=== PATIENT | female | born 1980 | race Caucasian/White ===

== ENCOUNTER → 2016-10-08 | Outpatient (CLI) | payer BC, OTHER ==
--- NOTE | 2016-10-08 16:28 | KCIC ---
PROCEDURE Obstetric ultrasound, greater than 14 weeks. HISTORY Supervision of normal . TECHNIQUE Real-time ultrasound imaging of the gravid uterus using transabdominal window is performed. COMPARISON None. FINDINGS A single intrauterine fetus is seen in cephalic position. heart rate is 143 all beats per minute. BPD is 5 cm which equals 21 weeks 1 days. HC is 18.5 cm which equals 20 weeks 6 days. AC is 14.9 cm which equals 20 weeks 1 days. FL is 3.3 cm which equals 20 weeks 3 days. Average gestational age by ultrasound is 20 weeks 5 days with an EDC of . Estimated weight is 350 +/- 52 grams A four-chamber heart and three-vessel cord are identified. stomach and urinary bladder are identified. kidneys are unremarkable. Cord insertion site is unremarkable. Visualized spine is unremarkable. The spine is not imaged in its entirety. Intracranial structures not imaged. AMADO using the four quadrant method is 9.1 cm. Cervix is not well seen. A fundal placenta is seen. No placenta previa and no placenta abruptio is identified. The maternal ovaries are not visualized. IMPRESSION 1. Single live intrauterine , estimated sonographic gestational age 20 weeks and 5 days. 2. No obvious anatomic abnormality, details above. Electronically signed by: Alexander Joaquin MD (Oct 08, 2016 16:26:52)
== END | disposition home or self-care (01) ==
LOC: KCIC US 15:29
PROVIDERS: ATTEND Obstetrics & Gynecology
DX: O09.90 Supervision of high risk pregnancy, unspecified, unspecified trimester (principal); O26.849 Uterine size-date discrepancy, unspecified trimester
CPT/HCPCS: 76805

== ENCOUNTER 2017-01-06 16:15 | Observation (INO) | payer BC ==
[2017-01-06] MEDS ORDERED: IV RINGERS,LACTATED 1000ML 1,000 ML IV SCH (16:57)
[2017-01-06 17:11] LABS: NEG OBC AMNIO NEG; POS OBC AMNIO POS
[2017-01-06 17:11] LABS: BILIRUBIN,URINE NEGATIVE (NEG); GLUCOSE,URINE NEGATIVE (NEG); NITRITE,URINE NEGATIVE (NEG); PROTEIN,URINE NEGATIVE (NEG-TRACE); UROBILINOGEN,URINE 0.2 mg/dL (0.2 mg/dL)
[2017-01-06 17:21] LABS: BACTERIA,URINE 0 /HPF (0-FEW); RBC,URINE 0 /HPF (0-2); SQUAMOUS EPITHELIAL CELL,UR FEW /LPF; WBC,URINE 0 /HPF (0-4)
[2017-01-06] MEDS ORDERED: BENZONATATE 100 MG CAPSULE. PO ONE (18:00)
== END 2017-01-06 18:35 | disposition home or self-care (01) ==
LOC: 3 SO LND 16:15
PROVIDERS: ADMIT Obstetrics & Gynecology; ATTEND Obstetrics & Gynecology
DX: O42.913 Preterm premature rupture of membranes, unspecified as to length of time between rupture and onset of labor, third trimester (principal); Z3A.32 32 weeks gestation of pregnancy
CPT/HCPCS: 36415; 81001; 84112; G0378; G0379

== ENCOUNTER → 2018-07-04 | Outpatient (CLI) | payer BC ==
--- NOTE | 2018-07-04 10:18 | KCIC ---
EXAM: Brain MRI without contrast. HISTORY: Dizziness TECHNIQUE: Multiplanar, multisequence magnetic resonance imaging of the brain was performed without contrast. COMPARISON: None. FINDINGS: There is no restricted diffusion to suggest acute or subacute infarction. There is no susceptibility effect to suggest hemorrhage. There is no mass effect or midline shift. There is no hydrocephalus. There are few tiny foci of signal changes within the cerebral white matter, likely artifactual. No convincing suspicious white matter lesion is seen. The orbits, paranasal sinuses mastoid air cells are unremarkable. There are normal flow voids within the cerebral vessels. IMPRESSION: No acute intracranial finding. Electronically signed by: Almaz Curran MD (07/04/2018 10:14 AM) [id number]
== END | disposition home or self-care (01) ==
LOC: KCIC MRI 09:14
PROVIDERS: ATTEND Family Medicine
DX: R42 Dizziness and giddiness (principal)
CPT/HCPCS: 70551